=== PATIENT | female | born 1950 | race Caucasian/White ===

== ENCOUNTER → 2017-04-08 | Outpatient (CLI) | payer MEDICARE, BC | LOC: MC.RAD 03-30 13:40 | DX: Z12.31 Encounter for screening mammogram for malignant neoplasm of breast (principal) ==

== ENCOUNTER 2018-01-04 08:15 | Day surgery (SDC) | payer MEDICARE, BC ==
[~2018-01-04] VITALS: Ht 170.2 cm; Wt 80.0 kg
[2018-01-04] VITALS (13 sets, daily range): BP systolic 115–168; BP diastolic 66–85; PULSE 59–93; TEMP 98–98.4
[2018-01-04 08:48] LABS: HEMATOCRIT 43.4 % (37.0-47.0); HEMOGLOBIN 14.7 g/dl (12.5-16.0); MEAN CELL VOLUME 89 fl (80.0-100.0); MEAN CORPUSCULAR HEMOGLOBIN 30 pg (27.0-31.0); MEAN CORPUSCULAR HGB CONC 34 g/dl (33.0-37.0); MEAN PLATELET VOLUME 9.6 fl (7.4-10.4); PLATELET COUNT 303 K/mm3 (130-400); RED BLOOD COUNT 4.88 M/mm3 (4.10-5.30); REDCELL DISTRIBUTION WIDTH-CV 12.6 % (11.5-14.5)
[2018-01-04] MEDS ORDERED: ASPIRIN E.C. 8181 MG PO (08:49)
[2018-01-04] MEDS ORDERED: ALORA0.025 MG/2 TD (08:50)
[2018-01-04] MEDS ORDERED: ZANTAC 7575 MG PO (08:52)
[2018-01-04] MEDS ORDERED: ZANTAC 150MG T150 MG PO (08:52)
[2018-01-04] MEDS ORDERED: BENADRYL25 M2 PO (08:53)
[2018-01-04 08:54] LABS: PROTHROMBIN TIME 10.9 SECONDS (9.7-12.8)
[2018-01-04 08:59] LABS: CALCIUM 9.6 mg/dL (8.4-10.2); CREATININE, serum 0.92 mg/dL (0.52-1.25); POTASSIUM 4.1 mmol/L (3.4-5.0)
[2018-01-04] MEDS ORDERED: TOPROL XL 50MG50 MG PO (10:12)
[2018-01-04] MEDS ORDERED: LIPITOR20 MG PO (10:18)
== END 2018-01-04 15:40 | disposition home or self-care (01) ==
LOC: COL.CAR 08:15
PROVIDERS: Internal Medicine Cardiovascular Disease
DX: I25.10 Atherosclerotic heart disease of native coronary artery without angina pectoris (principal); I77.1 Stricture of artery; J45.909 Unspecified asthma, uncomplicated; K21.9 Gastro-esophageal reflux disease without esophagitis; Z79.899 Other long term (current) drug therapy; Z77.22 Contact with and (suspected) exposure to environmental tobacco smoke (acute) (chronic); Z82.49 Family history of ischemic heart disease and other diseases of the circulatory system; Z82.3 Family history of stroke; E78.2 Mixed hyperlipidemia; R03.0 Elevated blood-pressure reading, without diagnosis of hypertension
CPT/HCPCS: J2250; J3010; Q9967

== ENCOUNTER → 2018-05-20 | Outpatient (CLI) | payer MEDICARE, OTHER ==
[~2018-05-20] MED LIST: ALORA0.025 MG/2 TD; ASPIRIN E.C. 8181 MG PO; BENADRYL25 M2 PO; LIPITOR20 MG PO; TOPROL XL 50MG50 MG PO; ZANTAC 150MG T150 MG PO; ZANTAC 7575 MG PO
== END ==
LOC: MC.RAD 14:00
DX: Z12.31 Encounter for screening mammogram for malignant neoplasm of breast (principal)

== ENCOUNTER → 2020-02-23 | Outpatient (CLI) | payer MEDICARE, OTHER | LOC: MC.RAD 12-13 14:45 | DX: Z12.31 Encounter for screening mammogram for malignant neoplasm of breast (principal) ==

== ENCOUNTER → 2021-05-28 | Outpatient (CLI) | payer MEDICARE, OTHER | LOC: MC.RAD 13:00 | DX: Z12.31 Encounter for screening mammogram for malignant neoplasm of breast (principal) ==

== ENCOUNTER → 2024-03-04 | Outpatient (CLI) | payer MEDICARE ==
[2005-05-06 15:17] VITALS: TEMP 97.1
== END ==
LOC: MC.RAD 14:05
DX: Z12.31 Encounter for screening mammogram for malignant neoplasm of breast (principal)